=== PATIENT | male | born 1985 | race Caucasian/White ===

== ENCOUNTER 2016-10-02 00:53 | Emergency (ER) | payer SELFPAY ==
[~2016-10-02] VITALS: Ht 180.3 cm; Wt 68.2 kg
[2016-10-02 01:05] VITALS: BP 125/80; PULSE 140; RESP 24; O2SAT 98
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
[2016-10-02] MEDS ORDERED: Clindamycin Inj 900 MG in IV Premix 1 EACH IV ONE (01:40)
[2016-10-02] MEDS ORDERED: oxyCODONE-Acetamin 5-325 mg Tablet PO ONE (01:40)
[2016-10-02] MEDS ORDERED: _oxyCODONE/APAP 5-325 mg Tablet PO PRN (02:20)
[2016-10-02 02:42] VITALS: PULSE 82; RESP 16
[2016-10-03] MEDS ORDERED: OXYC1TAB24 PO (13:32)
== END 2016-10-02 02:43 | disposition home or self-care (01) ==
LOC: SED 00:53
DX: L03.115 Cellulitis of right lower limb (principal); Z88.2 Allergy status to sulfonamides

== ENCOUNTER 2016-10-03 09:26 | Emergency (ER) | payer SELFPAY ==
[~2016-10-03] VITALS: Ht 180.3 cm; Wt 68.2 kg
[2016-10-03 09:34] VITALS: BP 110/49; PULSE 110; RESP 20; O2SAT 100
[2016-10-03] MEDS ORDERED: 0.9% Sodium Chloride 1,000 ML IV ONE (09:50)
[2016-10-03] MEDS ORDERED: Ondansetron 2 mg/mL 2 mL Inj IVPUSH ONE (09:50)
[2016-10-03] MEDS ORDERED: Clindamycin Inj 900 MG in IV Premix 1 EACH IV ONE (09:50)
[2016-10-03] MEDS ORDERED: HYDROmorphone 1 mg/mL Inj IVPUSH ONE ×2 (09:50→11:35)
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
[2016-10-03 10:49] LABS: BASOPHILS % (AUTO) 0.2 % (0-3); EOSINOPHILS % (AUTO) 0.9 % (0-5); Mean Corpuscular Volume 87.4 fL (81-100); Platelet Count 232 bil/L (150-400)
[2016-10-03] MEDS ORDERED: OXYC1TAB24 PO (13:32)
[2016-10-04 04:08] LABS: Hepatitis A Antibody IgM Negative (Negative); Hepatitis B Core Antibody IgM Negative (Negative)
== END 2016-10-03 14:03 | disposition home or self-care (01) ==
LOC: SED 09:26 → EDBD 09:26 → SED 14:03
DX: L02.33 Carbuncle of buttock (principal); F17.200 Nicotine dependence, unspecified, uncomplicated; Z88.2 Allergy status to sulfonamides
CPT/HCPCS: 36415; 80053; 85025; 86705; 86709; 87340; 87341; 96361; 96365; 96375; 96376; 99285; G0433; G0472; G0480; J1170; J1885; J2405; J7030